=== PATIENT | female | born 1990 | race Two or more races ===

== ENCOUNTER 2021-02-20 12:02 | Emergency (ER) | payer MEDICAID ==
[~2021-02-20] VITALS: Ht 160 cm; Wt 90.7 kg
[2021-02-20 12:02] VITALS: BP_SYST 116
== END 2021-02-20 13:34 | disposition left against medical advice (07) ==
LOC: SED 12:02
DX: M25.531 Pain in right wrist (principal); M25.532 Pain in left wrist; Z53.21 Procedure and treatment not carried out due to patient leaving prior to being seen by health care provider